=== PATIENT | male | born 1955 ===

== ENCOUNTER 2024-03-24 17:43 | Inpatient (IN) ==
[2024-03-24 18:05] LABS: ABS Lymphocytes 0.8 10^3/uL (1.0-4.8); ABS Neutrophils 9.1 10^3/uL (1.5-7.6); Eosinophil % 0.1 %; Hematocrit 34.4 % (38-53); Hemoglobin 11.4 g/dL (13.2-16.3); Lymphocyte % 7.7 %; Mean Corpuscular Hemoglobin 30.3 pg (27-33); Mean Corpuscular Hgb Conc 33.2 g/dL (31-36); Mean Corpuscular Volume 91.5 fL (80-97); Mean Platelet Volume 9.4 fL (7.5-11.2); Platelet Count 219 10^3/uL (150-450); Red Blood Count 3.77 10^6/uL (4.06-5.63); Red Cell Distribution Width 14.5 % (12-17)
[2024-03-24 18:18] LABS: Activated Partial Thrombo Time 46.2 seconds (26.0-38.0); INR 3.34 (0.85-1.14)
[2024-03-24 18:30] LABS: High Sens Troponin Baseline 17 pg/mL (<20)
[2024-03-24 18:41] LABS: Urine Appearance Clear; Urine Bilirubin Negative (Negative); Urine Blood 1+ (Negative); Urine Color Yellow; Urine Glucose Negative (Negative); Urine Ketones Trace (Negative); Urine Nitrite Negative (Negative); Urine Protein 1+ (>=30 mg/dL) (Negative); Urine Specific Gravity 1.015 (1.002-1.030); Urine Urobilinogen Negative (Negative)
[2024-03-24 18:53] LABS: Urine Bacteria 1+ /HPF (Absent); Urine Red Blood Cell 2+(6-10/hpf) /HPF (0-Trace); Urine Squamous Epithelial Cell Present /HPF (Absent); Urine White Blood Cell 1+(6-10/hpf) /HPF (0-Trace)
[2024-03-24 18:57] LABS: ALT 5 U/L (7-52); AST 12 U/L (13-39); Albumin 3.5 g/dL (3.2-5.2); Albumin/Globulin Ratio 1.1 (1-3); Alkaline Phosphatase 50 U/L (35-149); Anion Gap 17 mmol/L (2-16); Blood Urea Nitrogen 39 mg/dL (6-24); C Reactive Protein 353.94 mg/L (<8.01); CO2 Carbon Dioxide 20 mmol/L (22-32); Calcium 8.8 mg/dL (8.6-10.3); Chloride 98 mmol/L (101-111); Creatinine, Serum 3.07 mg/dL (0.67-1.17); Globulin 3.3 g/dL (2-4); Glucose 95 mg/dL (70-100); Sodium 135 mmol/L (135-145); Total Bilirubin 0.4 mg/dL (0.2-1.0); Total Protein 6.8 g/dL (6.4-8.9); eGFR CKD-EPI 21.1 (>60)
[2024-03-24 19:32] LABS: High Sensitivity Troponin 1 Hr 15 pg/mL (<20)
[2024-03-24] MEDS: Lactated Ringers 1000 ml BAG 1,000 ML IV ONE (19:36)
[2024-03-24] MEDS: Lactated Ringers 1000 ml BAG 1,000 ML IV SCH (21:51)
[2024-03-24 23:54] LABS: % Iron Saturation 10 % (15-55); .Transferrin 150 mg/dL (203-362); Iron < 20 ug/dL (50-212); Lipase 27 U/L (11.0-82.0); Total Iron Binding Capacity 210 mcg/dL (250-450); Unsaturated Iron Binding 190 ug/dL
[2024-03-25 00:13] LABS: TSH Ultra Thyroid Stim Horm 0.46 mcIU/mL (0.34-5.60)
[2024-03-25 00:20] LABS: Ferritin 376.1 ng/mL (24-336)
[2024-03-25 00:24] LABS: Vitamin B12 1174 pg/mL (180-914)
[2024-03-25] MEDS ORDERED: Dextrose 50% Syringe 50 ml 25 GM/50 ML SYRINGE IV PUSH PRN (03:41)
[2024-03-25] MEDS ORDERED: Albuterol HFA INHALER 8 gm MDI INH PRN (04:10)
[2024-03-25 05:44] LABS: ABS Basophils 0.1 10^3/uL (0.0-0.1); ABS Eosinophils 0.1 10^3/uL (0.0-0.5); ABS Lymphocytes 1.2 10^3/uL (1.0-4.8); ABS Neutrophils 8.7 10^3/uL (1.5-7.6); ABS Nucleated RBC 0.01 10^3/ul; Eosinophil % 0.5 %; Hemoglobin 10.1 g/dL (13.2-16.3); Lymphocyte % 10.6 %; Mean Corpuscular Hemoglobin 30.5 pg (27-33); Mean Corpuscular Hgb Conc 33.5 g/dL (31-36); Mean Corpuscular Volume 91.1 fL (80-97); Mean Platelet Volume 7.8 fL (7.5-11.2); Nucleated Red Blood Cells % 0.1 %/100WBC (0.0-0.8); Platelet Count 203 10^3/uL (150-450); Red Blood Count 3.29 10^6/uL (4.06-5.63); Red Cell Distribution Width 14.2 % (12-17); White Blood Count 10.9 10^3/uL (3.6-10.2)
[2024-03-25 06:19] LABS: Albumin/Globulin Ratio 1.1 (1-3); Calcium 8.5 mg/dL (8.6-10.3); Creatinine, Serum 3.15 mg/dL (0.67-1.17); Globulin 2.8 g/dL (2-4); Potassium 4.9 mmol/L (3.5-5.0); Total Bilirubin 0.3 mg/dL (0.2-1.0); Total Protein 5.8 g/dL (6.4-8.9); eGFR CKD-EPI 20.4 (>60)
[2024-03-25] MEDS: Polyethylene Glycol 3350 17 GM PACKET PO SCH (08:24)
[2024-03-25] MEDS: Vancomycin 1,250 MG in NS 0.9% 250 ml 250 ML IVPB ONE (11:02)
[2024-03-25] MEDS ORDERED: Vancomycin per Pharmacy 1 EA NOTE FOLLOW UP PRN (13:28)
[2024-03-25] MEDS ORDERED: Naloxone Nasal Spray 4 MG/0.1 ML NASAL.SPR INTRANASAL PRN (15:31)
[2024-03-25 19:21] LABS: ABS Basophils 0.1 10^3/uL (0.0-0.1); ABS Lymphocytes 0.8 10^3/uL (1.0-4.8); ABS Monocytes 0.8 10^3/uL (0.0-1.1); ABS Neutrophils 9.2 10^3/uL (1.5-7.6); Eosinophil % 0.1 %; Hematocrit 29.8 % (38-53); Hemoglobin 9.9 g/dL (13.2-16.3); Mean Corpuscular Hemoglobin 30.4 pg (27-33); Mean Corpuscular Hgb Conc 33.3 g/dL (31-36); Mean Corpuscular Volume 91.3 fL (80-97); Mean Platelet Volume 8.8 fL (7.5-11.2); Platelet Count 213 10^3/uL (150-450); Red Blood Count 3.26 10^6/uL (4.06-5.63); Red Cell Distribution Width 14.4 % (12-17); White Blood Count 10.8 10^3/uL (3.6-10.2)
[2024-03-25 19:26] LABS: Activated Partial Thrombo Time 37.9 seconds (26.0-38.0); INR 2.68 (0.85-1.14)
[2024-03-25 20:01] LABS: Calcium 8.7 mg/dL (8.6-10.3); Creatinine, Serum 2.98 mg/dL (0.67-1.17); Direct Bilirubin 0.1 mg/dL (0.03-0.18); Globulin 2.9 g/dL (2-4); HDL Cholesterol 13.7 mg/dL; Indirect Bilirubin 0.2 mg/dL (0.3-1.0); Potassium 4.7 mmol/L (3.5-5.0); Total Bilirubin 0.3 mg/dL (0.2-1.0); Total Protein 5.9 g/dL (6.4-8.9); eGFR CKD-EPI 21.8 (>60)
[2024-03-26] MEDS: Acetaminophen IV 1 GM/100ML 1,000 MG/100 ML BAG IV PRN (11:40)
[2024-03-26] MEDS: methylPREDNISolone SOD SUCC 40 mg/ml 1 ml VIAL IV SCH (12:22)
[2024-03-26] MEDS ORDERED: Metoprolol Tartrate 5 mg VIAL 5 ml VIAL (1 mg/ml) IV PRN (14:41)
[2024-03-26 15:51] LABS: ABS Basophils 0.1 10^3/uL (0.0-0.1); ABS Lymphocytes 0.4 10^3/uL (1.0-4.8); ABS Monocytes 0.3 10^3/uL (0.0-1.1); ABS Neutrophils 10.9 10^3/uL (1.5-7.6); Eosinophil % 0.1 %; Hemoglobin 10.4 g/dL (13.2-16.3); Lymphocyte % 3.3 %; Mean Corpuscular Hemoglobin 29.8 pg (27-33); Mean Corpuscular Hgb Conc 32.6 g/dL (31-36); Mean Corpuscular Volume 91.4 fL (80-97); Mean Platelet Volume 8.3 fL (7.5-11.2); Platelet Count 248 10^3/uL (150-450); Red Cell Distribution Width 14.6 % (12-17); White Blood Count 11.8 10^3/uL (3.6-10.2)
[2024-03-26 17:05] LABS: Calcium 8.9 mg/dL (8.6-10.3); Creatinine, Serum 2.65 mg/dL (0.67-1.17); Potassium 4.8 mmol/L (3.5-5.0); eGFR CKD-EPI 25.1 (>60)
[2024-03-26] MEDS: ceFAZolin 500 MG VIAL 500 MG in NS 0.9% 50 ML 50 ML IVPB SCH (21:34)
[2024-03-26] MEDS: D5LR 1000 ml BAG 1,000 ML IV SCH (21:34)
[2024-03-27 06:18] LABS: ABS Lymphocytes 0.5 10^3/uL (1.0-4.8); ABS Monocytes 0.2 10^3/uL (0.0-1.1); ABS Neutrophils 10.8 10^3/uL (1.5-7.6); Hemoglobin 9.6 g/dL (13.2-16.3); Lymphocyte % 4.5 %; Mean Corpuscular Hemoglobin 29.1 pg (27-33); Mean Corpuscular Hgb Conc 31.9 g/dL (31-36); Mean Corpuscular Volume 91.1 fL (80-97); Mean Platelet Volume 9.8 fL (7.5-11.2); Platelet Count 232 10^3/uL (150-450); Red Blood Count 3.29 10^6/uL (4.06-5.63); Red Cell Distribution Width 14.8 % (12-17); White Blood Count 11.6 10^3/uL (3.6-10.2)
[2024-03-27 06:38] LABS: Creatinine, Serum 2.46 mg/dL (0.67-1.17); Potassium 4.7 mmol/L (3.5-5.0); eGFR CKD-EPI 27.5 (>60)
[2024-03-27] MEDS: Vancomycin Random Level NOTE FOLLOW UP ONE (07:45)
[2024-03-27] MEDS: Senna TAB 8.6 mg TAB PO SCH (12:10)
[2024-03-27] MEDS: Magnesium Hydroxide LIQ 30 ML UDC PO ONE (12:11)
[2024-03-27 13:56] VITALS: BP 127/69
[2024-03-27] MEDS ORDERED: Enoxaparin 30 MG/0.3 ML SYR SUBCUT SCH (14:00)
== END 2024-03-27 14:09 | DRG 871 ==
LOC: EDACCT# → EDHOLD 17:43 → ED 17:43 → SUATTDRO 20:56 → MED 22:36
PROVIDERS: ADMIT Internal Medicine; ATTEND Student in an Organized Health Care Education/Training Program